=== PATIENT | female | born 1945 | race Caucasian/White ===

== ENCOUNTER → 2018-08-12 | Emergency (ER) | payer MEDICARE, OTHER ==
[~2018-08-12] VITALS: Ht 157.5 cm; Wt 69.1 kg
[~2018-08-12] MED LIST: ACET325T33 PO; ACETAMINOPHEN 325 MG TAB PO ONE; KETOROLAC 15 MG INJ IV STA; LORA-441 PO; LORAZEPAM 0.5 MG TAB PO ONE; METHYLPREDNISOLONE 125 MG INJ IV ONE; ONDA4TAB8 PO; ONDANSETRON 4 MG INJ IV STA; SOD CHLORIDE 0.9% 250 ML IV STA
[2018-08-12 13:48] VITALS: Ht 157.5 cm; Wt 69.1 kg
--- NOTE | 2018-08-12 16:20 | ERD ---
ER Documentation Chief Complaint Chief Complaint c/o right chronic pain. Denies injury HPI 72-year-old female, with history of chronic back pain, presents to the emergency department, complaining of acute exacerbation of the pain. The patient denies any recent trauma, no incontinence, no fever, no chills, no abdominal pain, no rashes. ROS All systems reviewed and are negative except as per history of present illness. Medications Home Meds Active Scripts Lorazepam* (Ativan*) 0.5 Mg Tablet, 0.5 MG PO QHS, #10 TAB Prov:GETACHEW CARSON MD 08/12/18 Acetaminophen* (Tylenol*) 325 Mg Tablet, 2 TAB PO Q6 PRN for PAIN AND OR ELEVATED TEMP, #20 TAB Prov:GETACHEW CARSON MD 08/12/18 Ondansetron Hcl* (Zofran*) 4 Mg Tablet, 4 MG PO Q8H PRN for NAUSEA AND/OR VOMITING, #30 TAB Prov:GETACHEW CARSON MD 08/12/18 Allergies Allergies: Coded Allergies: prochlorperazine (Verified Allergy, Unknown, seizures, 08/12/18) PMhx/Soc Chronic back pain Medical and Surgical Hx: pt denies Medical Hx, pt denies Surgical Hx Hx Alcohol Use: No Hx Substance Use: No Hx Tobacco Use: No Smoking Status: Never smoker FmHx Family History: No diabetes, No coronary disease Physical Exam Vitals Vital Signs Date Temp Pulse Resp B/P (MAP) Pulse Ox O2 O2 Flow FiO2 Time Delivery Rate 08/12/18 98.2 72 18 120/80 98 Room Air 18:41 (93) 08/12/18 98.1 76 18 148/76 96 13:48 (100) Physical Exam Const: Mild distress due to pain Head: Atraumatic Eyes: Normal Conjunctiva ENT: Normal External Ears, Nose and Mouth. Neck: Full range of motion. No meningismus. Resp: Clear to auscultation bilaterally Cardio: Regular rate and rhythm, no murmurs Abd: Soft, non tender, non distended. Normal bowel sounds Skin: No petechiae or rashes Back: No midline or flank tenderness Ext: No cyanosis, or edema Neur: Awake and alert Psych: Normal Mood and Affect Result Diagram: 08/12/18 1645 08/12/18 1645 Results 24 hrs Laboratory Tests Test 08/12/18 16:45 08/12/18 16:46 White Blood Count 9.0 10^3/ul Red Blood Count 4.63 10^6/ul Hemoglobin 13.7 g/dl Hematocrit 42.6 % Mean Corpuscular Volume 92.0 fl Mean Corpuscular Hemoglobin 29.6 pg Mean Corpuscular Hemoglobin Concent 32.2 g/dl Red Cell Distribution Width 14.1 % Platelet Count 228 10^3/UL Mean Platelet Volume 10.9 fl Immature Granulocytes % 0.300 % Neutrophils % 83.9 % Lymphocytes % 10.5 % Monocytes % 5.2 % Eosinophils % 0.1 % Basophils % 0.0 % Nucleated Red Blood Cells % 0.0 /100WBC Immature Granulocytes # 0.030 10^3/ul Neutrophils # 7.5 10^3/ul Lymphocytes # 0.9 10^3/ul Monocytes # 0.5 10^3/ul Eosinophils # 0.0 10^3/ul Basophils # 0.0 10^3/ul Nucleated Red Blood Cells # 0.0 10^3/ul Sodium Level 142 mmol/L Potassium Level 4.0 mmol/L Chloride Level 102 mmol/L Carbon Dioxide Level 30 mmol/L Anion Gap 10 Blood Urea Nitrogen 16 mg/dl Creatinine 0.57 mg/dl Est Glomerular Filtrat Rate mL/min mL/min Glucose Level 120 mg/dl Calcium Level 9.5 mg/dl Urine Color YELLOW Urine Clarity CLOUDY Urine pH 9.0 Urine Specific [place] 1.011 Urine Ketones NEGATIVE mg/dL Urine Nitrite NEGATIVE mg/dL Urine Bilirubin NEGATIVE mg/dL Urine Urobilinogen NEGATIVE mg/dL Urine Leukocyte Esterase NEGATIVE Lizette/ul Urine Microscopic RBC 0 /HPF Urine Microscopic WBC 5 /HPF Urine Bacteria FEW /HPF Urine Hemoglobin NEGATIVE mg/dL Urine Glucose NEGATIVE mg/dL Urine Total Protein NEGATIVE mg/dl Current Medications Medications Dose Sig/Nakul Start Time Status Last (Trade) Ordered Route PRN Stop Time Admin Dose Reason Admin Sodium 250 ml @ Q1H STAT 08/12/18 DC 08/12/18 Chloride 250 mls/hr IV 16:21 17:08 08/12/18 17:20 Ondansetron 4 mg ONCE STAT 08/12/18 DC 08/12/18 HCl (Zofran IV 16:21 17:08 Inj) 08/12/18 16:28 Ketorolac 15 mg ONCE STAT 08/12/18 DC 08/12/18 Tromethamine IV 16:24 17:08 (Toradol) 08/12/18 16:28 125 mg ONCE ONCE 08/12/18 DC 08/12/18 Methylprednis IV 16:30 17:08 olone Sodium 08/12/18 16:31 Succinate (Solu-Medrol) 650 mg ONCE ONCE 08/12/18 DC 08/12/18 Acetaminophen PO 16:30 17:07 (Tylenol 08/12/18 16:31 Tab) Lorazepam 0.5 mg ONCE ONCE 08/12/18 DC 08/12/18 (Ativan) PO 16:30 17:08 08/12/18 16:31 Procedures/MDM At the time of discharge, patient nontoxic, ambulating, vital signs stable, no gross neurologic deficit. differential diagnosis include but not limited to: lumbar sprain/strain, sciatica, herniated disk, UTI less likely pyelo, kidney stone. Neurovascular exam grossly intact. no clinical findings suggestive of acute infectious process, no acute deformity, no edema, no rashes. Physical examination and clinical presentation consistent most likely with acute on chronic back. The patient presented significant improvement of the symptoms after treatment received in the emergency department, treatment options and clinical impression discussed with the patient who agrees with management. The patient is stable to be treated outpatient and will be discharged home with recommendations and close monitoring The patient was informed that the evaluation in the emergency department has been done to rule out an acute emergency, therefore, chronic conditions like malignancy or autoimmune diseases have not been evaluated; therefore, the patient was instructed to follow up with the primary care provider in the next 48h. If symptoms persist, worsen or new symptoms develop, then patient should return to the ED immediately. Instructions explained and given to patient with acknowledgment and demonstrated understanding. Disclaimer: Inadvertent spelling and grammatical errors are likely due to EHR/dictation software use and do not reflect on the overall quality of patient care. Also, please note that the electronic time recorded on this note does not necessarily reflect the actual time of the patient encounter. Departure Diagnosis: Primary Impression: Chronic pain Condition: Stable Additional Instructions: Thank you very much for allowing us to participate in your care. Your health and safety is our top priority at [facility]. The evaluation in the emergency department has been done to rule out an acute emergency, therefore, chronic conditions like malignancy or other diseases have not been evaluated; therefore, you need to follow up with a primary care provider in the next 48h. If symptoms persist, worsen or new symptoms develop, then patient should return to the ED immediately. Call your primary care doctor TOMORROW for an appointment during the next 2-4 days and bring all the information provided. Have prescriptions filled and follow precisely the directions on the label. If the symptoms get worse and your provider is unavailable, return to the Emergency Department immediately. GETACHEW CARSON MD Aug 12, 2018 16:20
[2018-08-12 18:41] VITALS: BP 120/80; PULSE 72; RESP 18
== END | disposition home or self-care (01) ==
LOC: FTE 13:13
DX: G89.29 Other chronic pain (principal)
CPT/HCPCS: 36415; 80048; 81001; 85025; 96361; 96374; 96375; 99284; J1885; J2405; J2930; J7040